=== PATIENT | female | born 1980 | race Caucasian/White ===

== ENCOUNTER → 2018-10-31 | Outpatient (CLI) | payer OTHER ==
[2015-09-27 04:30] VITALS: BP 120/62
--- NOTE | 2018-10-31 09:58 | KCIC ---
EXAM: Right shoulder, 3 views. HISTORY: Pain. COMPARISON: None. FINDINGS: 3 views of the right shoulder obtained. There is no fracture, dislocation or subluxation. IMPRESSION: No acute osseous finding. Electronically signed by: Muna Wise MD (10/31/2018 9:55 AM) [id number]
== END | disposition home or self-care (01) ==
LOC: KCIC 08:54
PROVIDERS: ATTEND Nurse Practitioner Family
DX: M25.511 Pain in right shoulder (principal)
CPT/HCPCS: 73030

== ENCOUNTER → 2019-06-29 | Outpatient (CLI) | payer OTHER ==
[2015-09-27 04:30] VITALS: BP 120/62
[~2019-06-29] VITALS: Ht 172.7 cm; Wt 81.6 kg
[~2019-06-29] MED LIST: ALPR0.25 PO; BUPR100T7 PO; CALC168T7 PO; SINCALIDE 1.6 MCG in IV NORMAL SALINE 50ML 30 ML IV ONE
--- NOTE | 2019-06-29 11:14 | RAD ---
HEPATOBILIARY SCAN WITH GALLBLADDER EJECTION FRACTION Clinical indications: Right upper quadrant abdominal pain. COMPARISON: TECHNIQUE: After IV infusion of 5.5 mCi of technetium 99m Choletec, anterior planar images of the upper abdomen were performed in sequential fashion and a time/activity curve was generated. 1.6 mcg of cholecystokinin was given intravenously and a gallbladder ejection fraction was measured and calculated. FINDINGS: Homogeneous uptake is seen throughout the liver. Radiotracer activity is seen within the gallbladder by 10 minutes minutes. Radiotracer activity is seen within the duodenum by 60 minutes. Gallbladder ejection fraction is measured and calculated to be 88%. Normal is greater than 35%. IMPRESSION: Normal hepatobiliary scan with gallbladder ejection fraction of 88%. Electronically signed by: Earle Croft MD (06/29/2019 11:11 AM) [id number]
== END | disposition home or self-care (01) ==
LOC: NM 07:23
PROVIDERS: ATTEND Physician Assistant
DX: R10.11 Right upper quadrant pain (principal)
CPT/HCPCS: 78227; A9537; J2805

== ENCOUNTER → 2019-09-27 | Outpatient (CLI) | payer OTHER ==
[2015-09-27 04:30] VITALS: BP 120/62
[~2019-09-27] MED LIST changes: -SINCALIDE 1.6 MCG in IV NORMAL SALINE 50ML 30 ML IV ONE
--- NOTE | 2019-09-27 13:03 | RAD ---
EXAM: Nuclear gastric emptying scan. HISTORY: Nausea. Vomiting. Right upper quadrant pain. COMPARISON: CT dated 09/27/2015. TECHNIQUE: Serial static images were obtained over the stomach following oral administration of 2.1 mCi of 99m-Tc sulfur colloid in an egg based meal. FINDINGS: The stomach empties into the small bowel without evidence of reflux in the area of the esophagus. The estimated time for half emptying of gastric contents, i.e. 'gastric emptying time' is 45 minutes (normal is 66 +/- 22 minutes). There is 22% retained tracer activity within the stomach at one hour, 8% retained tracer activity within the stomach at 2 hours, and 0% retained tracer activity within the stomach at 3 hours. IMPRESSION: Normal gastric emptying. Electronically signed by: Muna Wise MD (09/27/2019 1:00 PM) [facility]
== END | disposition home or self-care (01) ==
LOC: NM 08:32
PROVIDERS: ATTEND Physician Assistant
DX: R10.11 Right upper quadrant pain (principal); R11.2 Nausea with vomiting, unspecified
CPT/HCPCS: 78264; A9541

== ENCOUNTER 2019-10-08 07:40 | Day surgery (SDC) | payer OTHER ==
[~2019-10-08] VITALS: Ht 172.7 cm; Wt 83.0 kg
[~2019-10-08 07:40] MED LIST changes: +HYDROmorphone 2 MG/ML VIAL IV PRN; +IV RINGERS,LACTATED 1000ML 1,000 ML IV SCH; +LIDOCAINE 1% PF 2 ML VIAL. ID PRN; +ONDANSETRON PF 4 MG/2 ML VIAL. IV PRN; +PROCHLORPERAZINE 10 MG/2 ML VIAL. IV PRN; +fentaNYL PF VIAL 100 MCG/2 ML VIAL IV PRN
[2019-10-08] MEDS ORDERED: PROPOFOL 20 ML IV ONE ×2 (07:50→10:20)
[2019-10-08] MEDS ORDERED: ROCURONIUM 50 MG/5 ML VIAL. ONE (07:50)
[2019-10-08] MEDS ORDERED: ONDANSETRON PF 4 MG/2 ML VIAL. ONE (07:50)
[2019-10-08] MEDS ORDERED: MIDAZOLAM HCL/PF 2 MG/2 ML VIAL. ONE (07:50)
[2019-10-08] MEDS ORDERED: fentaNYL PF VIAL 100 MCG/2 ML VIAL ONE ×2 (07:50→09:30)
[2019-10-08] MEDS ORDERED: DEXAMETHASONE SOD PHOS 4 MG/ML VIAL ONE (07:50)
[2019-10-08] MEDS ORDERED: LIDOCAINE 2% PF 5 ML VIAL. ONE (07:50)
[2019-10-08] MEDS ORDERED: GLYCOPYRROLATE 1 MG/5 ML VIAL. ONE (08:02)
[2019-10-08] MEDS ORDERED: NEOSTIGMINE METHYLSULFATE 5 MG/5 ML SYRINGE. ONE (08:16)
[2019-10-08] MEDS ORDERED: PANT40TA77 PO (08:19)
[2019-10-08] MEDS ORDERED: ACYC200C PO (08:20)
[2019-10-08] MEDS ORDERED: SURGICEL HEMOSTAT 4X8 EACH. ONE (08:56)
[2019-10-08] MEDS ORDERED: IOHEXOL 300 MG/ML 50 ML VIAL. ONE (08:56)
[2019-10-08] MEDS ORDERED: BUPIVACAINE MPF 0.5% 30 ML VIAL. ONE (08:57)
[2019-10-08] MEDS ORDERED: KETAMINE HCL IN NACL, ISO-OSM 50 MG/5 ML SYRINGE ONE (09:31)
[2019-10-08] MEDS ORDERED: ceFAZolin 2GM PREMIX 2 GM/50 ML BAG IV ONE (10:00)
[2019-10-08] MEDS ORDERED: KETOROLAC 30 MG/ML VIAL. ONE (10:10)
[2019-10-08] MEDS ORDERED: SEVOFLURANE 61 TO 120 MINUTES. IH ONE (10:10)
--- NOTE | 2019-10-08 10:27 | PDOC4 ---
Operative Note Operative Note Operative Note: Preoperative Diagnosis: Biliary dyskinesia Postoperative Diagnosis: Same Procedure: Laparoscopic cholecystectomy with intraoperative cholangiogram Surgeons: Edy Track Grinder: Antwon HARDY Anesthesia: Gen. Estimated Blood Loss: 10 mL Specimen: Gallbladder to pathology Drains: None Complications: None Indications: The patient is a 39-year-old female who is been experiencing recurrent upper abdominal pain consistent with biliary colic. Her evaluation appears consistent with potential biliary dyskinesia. Surgical treatment was offered by means of a laparoscopic cholecystectomy. The risks of surgery were discussed which include bleeding, infection, bile duct injury, bile leak, pain, the potential for additional surgeries or procedures. The patient understands and would like to proceed. Description: The patient was taken to the operating room and laid supine on the operating table. General anesthesia was performed. The abdomen was prepped with ChloraPrep and draped in a standard surgical fashion. A small infraumbilical incision was made with a scalpel. The Veress needle was then inserted and a pneumoperitoneum was then created. A 5 mm trocar was then i nserted and the laparoscope was introduced. In the upper midabdomen a 5 mm trocar was inserted and in the right upper quadrant two 2.3 mm mini lap graspers were inserted. The gallbladder was retracted cephalad. The cystic duct was dissected free from surrounding tissues. One clip was placed on the duct near the gallbladder junction. An opening was made in the duct and a cholan giocatheter placed within and secured with a clip. Using contrast dye and fluoroscopy an intraoperative cholangiogram was performed that appeared unremarkable. The clip and catheter were then withdrawn. Three clips were placed on the cystic duct and it was divided. The cystic artery was then identified, dissected free, doubly clipped and divided as well. The gallbladder was then mobilized away from the liver with cautery. The umbilical 5 millimeter trocar was exchanged for an 11 millimeter trocar. The gallbladder was then placed in an endoscopic bag and extracted at the umbilical trocar site. The fascia there was closed with an 0 Vicryl suture. All blood and irrigation fluid was suctioned and hemostasis was good. The remaining ports were removed and the pneumoperitoneum was relieved. The skin incisions were injected with half percent Marcaine with epinephrine, and all were closed using 4-0 Monocryl suture. Steri-Strips and dressings were then applied. The patient tolerated the procedure well and was sent to the recovery room in stable condition. At the end of the case all counts were correct. CARSON WILLIAM MD Oct 08, 2019 10:27
--- NOTE | 2019-10-08 10:29 | DISCH ---
DISCHARGE INSTRUCTIONS Condition on Discharge Condition on Discharge: Stable Activity After Discharge Activity Instructions for Disc: Other, see below (no lifting over 20 lbs X 2 weeks, no driving while taking pain meds) Diet after Discharge Diet after Discharge: Regular Wound Incision Care Wound/Incision Care: Other, see below (may remove bandaids tomorrow and shower) Follow-Up Follow up with: Dr William in 2 weeks in office, call for appt [phone] CARSON WILLIAM MD Oct 08, 2019 10:29
--- NOTE | 2019-10-08 10:30 | RAD ---
C-arm fluoroscopy with fluoroscopic spot views Clinical indications: Intraoperative cholangiogram. Fluoroscopic time: 0.12 minutes. Total fluoroscopic spot images: 2. IMPRESSION: Contrast opacification of the extrahepatic biliary tree is seen with free flow of contrast material from the common bile duct into the duodenum. No stricture or stone is evident. Electronically signed by: Earle Croft MD (10/08/2019 10:26 AM) [facility]-[id number]
[2019-10-08] MEDS: MORPHINE SULFATE 2 MG/ML VIAL. IV PRN ×2 (10:49→11:00)
[2019-10-08] MEDS: fentaNYL PF VIAL 100 MCG/2 ML VIAL IV PRN ×2 (10:50→11:12)
[2019-10-08] MEDS ORDERED: oxyCODONE/APAP 5/325 1 TAB TABLET PO ONE ×2 (11:15)
[2019-10-08] MEDS ORDERED: OXYC-325 PO (11:35)
[2019-10-08 12:00] VITALS: BP 140/69
--- NOTE | 2019-10-10 09:07 | PATHOLOGY ---
[facility] Accession Number: [id number] . 01 Material submitted: . gallbladder - GALLBLADDER AND CONTENTS . 01 Clinical history: . Biliary dyskinesia . 02 Diagnosis: Gallbladder, laparoscopic cholecystectomy: - Chronic cholecystitis. (JPM:landmen; 10/09/2019) MBR 10/09/2019 1551 Local . 02 Comment: There are no calculi identified within the gallbladder lumen or specimen container. Sections of the gallbladder show mild chronic inflammation. There is no evidence of malignancy. (JPM:landmen; 10/09/2019) . 02 Electronically signed: . Mike Marvin MD, Pathologist NPI- [id number] . 01 Gross description: . The specimen is received in formalin, labeled "Janell Dickerson, gallbladder and contents". Received is an intact gallbladder measuring 7.6 x 3.4 x 3.4 cm in greatest dimensions displaying a blue-rocha serosal surface. Opening the specimen reveals a velvety, pink-oliveira to bile-stained mucosa with a gallbladder wall thickness of 0.1 cm. Calculi are not present, and no masses or lesions are noted grossly. Die Maker Electronic sections, to include the proximal margin, are submitted in cassette A1. (CAA; 10/08/2019) QAC/QAC 10/08/2019 1602 Local . 02 Pathologist provided ICD-10: K81.1 . 02 CPT . 372545 Specimen Comment: A courtesy copy of this report has been sent to [phone], [phone] Specimen Comment: [id number] Specimen Comment: Report sent to / DR MILLS Performed at: 01 [facility] [address] [place] [address] [address], [place], [place] [id number] MD Raul Sears MD Phone: [phone] Performed at: 02 [facility] [address], [place] [id number] MD Mike Marvin MD Phone: [phone]
== END 2019-10-08 12:37 | disposition home or self-care (01) ==
LOC: SURG 07:40
PROVIDERS: ATTEND Surgery
DX: K81.1 Chronic cholecystitis (principal); G43.909 Migraine, unspecified, not intractable, without status migrainosus; K21.9 Gastro-esophageal reflux disease without esophagitis; K22.70 Barrett's esophagus without dysplasia; F41.9 Anxiety disorder, unspecified; F32.9 Major depressive disorder, single episode, unspecified; Z98.890 Other specified postprocedural states; Z87.891 Personal history of nicotine dependence; Z72.89 Other problems related to lifestyle
CPT/HCPCS: 47563; 74300; 81025; A7015; J0696; J0780; J1100; J1885; J2001; J2250; J2270; J2405; J2704; J2710; J3010; J3490; J7030; Q9967

== ENCOUNTER → 2020-07-22 | Outpatient (CLI) | payer OTHER ==
[~2020-07-22] MED LIST changes: +ACYC200C PO; -HYDROmorphone 2 MG/ML VIAL IV PRN; -IV RINGERS,LACTATED 1000ML 1,000 ML IV SCH; -LIDOCAINE 1% PF 2 ML VIAL. ID PRN; -ONDANSETRON PF 4 MG/2 ML VIAL. IV PRN; +OXYC-325 PO; +PANT40TA77 PO; -PROCHLORPERAZINE 10 MG/2 ML VIAL. IV PRN; -fentaNYL PF VIAL 100 MCG/2 ML VIAL IV PRN
--- NOTE | 2020-07-22 13:50 | RAD ---
EXAM: Pelvic sonogram. HISTORY: Menorrhagia. TECHNIQUE: Transabdominal and transvaginal sonographic imaging of the pelvis was performed. COMPARISON: 10/07/2015. FINDINGS: The uterus measures 8.9 x 6.1 x 4.9 cm. The endometrial stripe measures 7.6 mm in thickness. There is a small physiologic follicle within the right ovary measuring 8 mm. There is normal blood flow within the right ovary. The left ovary is not seen. There is a small amount of pelvic free fluid. IMPRESSION: 1. Small amount of pelvic free fluid, within physiologic limits for a premenopausal female. 2. Unremarkable uterus and right ovary. The left ovary is not seen. Electronically signed by: Muna Wise MD (07/22/2020 1:47 PM) [id number]
--- NOTE | 2020-07-22 14:18 | RAD ---
EXAM: Bilateral screening mammogram. HISTORY: 40-year-old female presents for baseline mammography. TECHNIQUE: Full-field digital craniocaudal and mediolateral oblique views of both breasts are obtained for evaluation. Computer aided detection was not applied. COMPARISON: None. BREAST PARENCHYMAL DENSITY: Level C - Heterogeneously dense. FINDINGS: There is a small nodular density within the 6:00 position of the right breast at mid depth. There is no architectural distortion or suspicious calcification within either breast. IMPRESSION: BI-RADS Category 0: Incomplete. Additional imaging needed. RECOMMENDATION: Further evaluation with a full field true lateral view and spot compression views of nodularity within the 6:00 position of the right breast at mid depth is recommended. Sonographic imaging of the right breast can also be performed if deemed indicated based on additional mammographic findings. If your mammogram demonstrates that you have dense breast tissue, which could hide abnormalities, and if you have other risk factors for breast cancer that have been identified, you might benefit from supplemental screening tests that may be suggested by your ordering physician. Dense breast tissue, in and of itself, is a relatively common condition. This information is not provided to cause undue concern, but rather to raise your awareness and to promote discussion with your physician regarding the presence of other risk factors, in addition to dense breast tissue. A report of your mammography results will be sent to you and your physician. You should contact your physician if you have any questions or concerns regarding this report. Mammography is a sensitive method for finding small breast cancers, but it does not detect them all and is not a substitute for careful clinical examination. A negative mammogram does not negate a clinically suspicious finding and should not result in delay in biopsying a clinically suspicious abnormality. PQRS compliance statement - Patient information was entered into a reminder system with a target due date for the next mammogram. "Our facility is accredited by the [employer] Mammography Program." Electronically signed by: Muna Wise MD (07/22/2020 2:15 PM) [id number]
== END ==
LOC: MAMMO 13:00
PROVIDERS: ATTEND Nurse Practitioner Family
DX: Z12.31 Encounter for screening mammogram for malignant neoplasm of breast (principal); N64.89 Other specified disorders of breast; N92.0 Excessive and frequent menstruation with regular cycle
CPT/HCPCS: 76830; 76856; 77067

== ENCOUNTER → 2020-08-13 | Outpatient (CLI) | payer OTHER ==
--- NOTE | 2020-08-13 17:40 | RAD ---
Impression: 1. Right digital diagnostic mammogram. 2. Limited right breast ultrasound. INDICATION: Screening recall for nodularity in the inferior right breast. COMPARISON: 07/22/2020 bilateral mammogram TECHNIQUE: Spot 2-D compression views of the right breast in the CC and MLO projections were obtained. A full field right ML view was also obtained. Thereafter, targeted ultrasound of the inferior right breast was performed. FINDINGS: Heterogeneously dense breast parenchyma. The nodularity appeared to dissipate with additional mammographic views but given the dense breast parenchyma, targeted ultrasound of the inferior right breast was performed and identified an oval 5 mm parallel orientation circumscribed hypoechoic mass with central echogenicity, compatible with a benign intramammary lymph node that likely explains the mammographic finding recalled from screening. This was seen at the 6:00 position 2 cm from the nipple. No suspicious sonographic findings. IMPRESSION: Benign findings on targeted ultrasound and diagnostic mammography of the right breast, compatible with intramammary lymph node. No evidence of malignancy. Recommend return to routine screening next due in one year. BI-RADS Category 2 Benign findings Patient entered into a reminder system with targeted due date for next mammogram. Electronically signed by: Terra Mendes MD (08/13/2020 5:37 PM) [id number]
== END ==
LOC: MAMMO 10:34
PROVIDERS: ATTEND Nurse Practitioner Family
DX: R92.2 Inconclusive mammogram (principal); N63.14 Unspecified lump in the right breast, lower inner quadrant
CPT/HCPCS: 76641; 77065

== ENCOUNTER → 2021-07-27 | Outpatient (CLI) | payer OTHER ==
[~2021-07-27] MED LIST changes: -ACYC200C PO; +ACYC200C84 PO
--- NOTE | 2021-07-27 14:17 | RAD ---
Bilateral digital screening 2-D and 3-D (tomosynthesis) mammogram: Reason for examination: Routine screening. Comparison is made to previous mammogram from 07/22/2020. Bilateral mammograms in CC and oblique projections were obtained with 2-D imaging and 3-D tomosynthes is imaging and reviewed on the workstation. Interpretation was made with the benefit of CAD. Findings: Breast density: Category C. The breasts are heterogeneously dense, which may obscure small masses. There are no suspicious masses, malignant appearing calcifications or architectural distortion. Impression: No evidence of malignancy. ASSESSMENT: BI-RADS 1. Recommendations: Routine screening mammograms. This patient's information has been entered into a reminder system for the patient to be notified wit h the results of her examination and a target date for the next mammogram. Your patient's mammogram demonstrates that she has dense breast tissue (breast density category C or D), which could hide abnormalities, and if she has other risk factors for breast cancer that have bee n identified, she might benefit from supplemental screening tests that may be suggested by you as her ordering physician. Dense breast tissue, in and of itself, is a relatively common condition. Therefo re, this information is not provided to cause undue concern, but rather to raise your awareness and t o promote discussion with your patient regarding the presence of other risk factors, in addition to d ense breast tissue. Electronically signed by: Angeles Spicer MD (07/27/2021 2:15 PM) [id number]
== END ==
LOC: MAMMO 10:08
PROVIDERS: ATTEND Nurse Practitioner Family
DX: Z12.31 Encounter for screening mammogram for malignant neoplasm of breast (principal)
CPT/HCPCS: 77063; 77067